=== PATIENT | female | born 1980 | race American Indian/Alaskan Native ===

== ENCOUNTER 2017-01-09 13:06 | Emergency (ER) | payer BC ==
[2017-01-09 13:06] VITALS: BMI 22.8
[2017-01-09 14:52] LABS: BASO # 0.1 K/uL (0.0-0.2); BASO % 0.7 % (0.0-2.0); EOS % 0.3 % (0.0-4.0); HEMATOCRIT 33.1 % (34.0-47.0); LYMPH # 2.4 K/uL (1.0-4.3); LYMPH % 22.4 % (20.0-40.0); MEAN CORPUSCULAR HEMOGLOBIN 24.5 pg (27.0-31.0); MEAN PLATELET VOLUME 8.4 fl (7.2-11.7); MONO # 0.7 K/uL (0.0-0.8); MONO % 6.7 % (0.0-10.0); NEUT # 7.5 K/uL (1.8-7.0); NEUT % 69.9 % (50.0-75.0); RED CELL DISTRIBUTION WIDTH 14.4 % (11.5-14.5); WHITE BLOOD COUNT 10.7 K/uL (4.8-10.8)
--- NOTE | 2017-01-09 15:01 | ED PDOC ---
HPI: Headache Time Seen by Provider: 01/09/17 14:01 Chief Complaint (Nursing): Headache Chief Complaint (Provider): Headache History Per: Patient History/Exam Limitations: no limitations Onset/Duration Of Symptoms: Days (x7) Additional Complaint(s): Balbina Apariico is a 36 year old female, 16 weeks , presenting to the ED for an evaluation of chronic headaches associated with elevated blood pressure occurring for several days. The patient visited [facility], 3 times last week and reports elevated blood pressure and headache during each of these visits. Due to this, her OBGYN referred her to this ED for further evaluation for possible preeclampsia. The patient reports her elevated blood pressure and headache improved significantly today, although she did have a headache this morning. The patient describes this as a frontal headache. She denies vomiting, leg swelling, chest pain, shortness of breath, or any other medical complaints. OBGYN: Jack Rader MD Past Medical History Reviewed: Historical Data, Nursing Documentation, Vital Signs Vital Signs: Last Vital Signs Temp 98.0 F 01/09/17 13:29 Pulse 102 H 01/09/17 13:29 Resp 18 01/09/17 13:29 BP 120/67 01/09/17 13:29 Pulse Ox 99 01/09/17 13:29 - Medical History PMH: Denies: Depression - Surgical History Surgical History: No Surg Hx - Family History Family History: States: Unknown Family Hx - Social History Current smoker - smoking cessation education provided: No Ex-Smoker (has not smoked in the last 12 months): No Alcohol: None Drugs: Denies - Immunization History Hx Tetanus Toxoid Vaccination: No Hx Influenza Vaccination: No Hx Pneumococcal Vaccination: No - Home Medications Home Medications: Ambulatory Orders Medication Instructions Recorded Acetaminophen/Oxycodone Hydr 1 tab PO Q6 #10 tab 01/21/13 [Percocet 325 mg-5 mg] Diazepam [Valium] 5 mg PO Q8 PRN #12 tab 01/21/13 Naproxen [Naprosyn] 500 mg PO Q12 PRN #30 tab 01/21/13 - Allergies Allergies/Adverse Reactions: Allergies Allergy/AdvReac Type Severity Reaction Status Date / Time Penicillins Allergy RASH Verified 01/09/17 13:28 Review of Systems ROS Statement: Except As Marked, All Systems Reviewed And Found Negative Constitutional: Positive for: Other (elevated blood pressure ) Cardiovascular: Negative for: Chest Pain Respiratory: Negative for: Shortness of Breath Gastrointestinal: Negative for: Vomiting Musculoskeletal: Negative for: Leg Pain (no leg swelling) Neurological: Positive for: Headache Physical Exam - Reviewed Nursing Documentation Reviewed: Yes Vital Signs Reviewed: Yes - Physical Exam Appears: Positive for: Well, Non-toxic, No Acute Distress Head Exam: Positive for: ATRAUMATIC, NORMAL INSPECTION, NORMOCEPHALIC Skin: Positive for: Normal Color, Warm, Dry Eye Exam: Positive for: EOMI, Normal appearance, PERRL ENT: Positive for: Normal ENT Inspection Neck: Positive for: Normal, Painless ROM, Supple Cardiovascular/Chest: Positive for: Regular Rate, Rhythm, Chest Non Tender Respiratory: Positive for: Normal Breath Sounds. Negative for: Respiratory Distress Gastrointestinal/Abdominal: Positive for: Normal Exam, Bowel Sounds, Soft, Other (gravid abdomen). Negative for: Tenderness Back: Positive for: Normal Inspection. Negative for: L CVA Tenderness, R CVA Tenderness Extremity: Positive for: Normal ROM. Negative for: Pedal Edema, Deformity, Swelling Neurologic/Psych: Positive for: Alert, Oriented (x3). Negative for: Motor/ Sensory Deficits - Laboratory Results Result Diagrams: 01/09/17 14:45 01/09/17 14:45 - ECG O2 Sat by Pulse Oximetry: 99 (RA) Pulse Ox Interpretation: Normal Medical Decision Making Medical Decision Making: Time: 14:01 Impression: Recurrent headache during 2nd trimester with history of elevated blood pressure Differential diagnosis includes but not limited to preeclampsia, OB complicaitons Plan: * CMP * Uric Acid * CBC (With Differential) * Urinalysis * US Biophysical profile * Reevaluation Consult Dr. Rader [id number] Ultrasound Impression: Single live intrauterine gestation of approximately 16 weeks 1 day gestational age. heart rate 149. No previa. Normal amniotic fluid volume. Cervix closed and long. [id number] Rader who recommends discharge and follow up Scribe Attestation: Documented by Aylin Babin, acting as a scribe for Verónica Richards MD. Provider Scribe Attestation: All medical record entries made by the Scribe were at my direction and personally dictated by me. I have reviewed the chart and agree that the record accurately reflects my personal performance of the history, physical exam, medical decision making, and the department course for this patient. I have also personally directed, reviewed, and agree with the discharge instructions and disposition. Disposition - Clinical Impression Clinical Impression: Headache, Hypertension affecting - Patient ED Disposition Is Patient to be Admitted: No Doctor Will See Patient In The: Office Counseled Patient/Family Regarding: Studies Performed, Diagnosis, Need For Followup - Disposition Referrals: Jack Rader MD [Staff Provider] - Disposition: Routine/Home Disposition Time: 17:33 Condition: GOOD Additional Instructions: Follow up with your PCP in 2-3 days. Instructions: Preeclampsia (ED)
[2017-01-09 15:02] LABS: ALB/GLOB RATIO 1.1 (1.0-2.1); ALKALINE PHOSPHATASE 46 U/L (38-126); ALT/SGPT 98 U/L (9-52); AST/SGOT 38 U/L (14-36); BILIRUBIN,TOTAL 0.4 mg/dl (0.2-1.3); BLOOD UREA NITROGEN 11 mg/dl (7-17); CALCIUM 9.2 mg/dL (8.4-10.2); CARBON DIOXIDE 21 mmol/L (22-30); CHLORIDE 103 mmol/L (98-107); GFR AFRICAN-AMERICAN > 60; GLUCOSE,RANDOM 93 mg/dL (65-105); POTASSIUM 4.3 MMOL/L (3.6-5.0); SODIUM 134 mmol/l (132-148); TOTAL PROTEIN 7.1 G/DL (6.3-8.2); URIC ACID 4.3 mg/Dl (2.2-7.5)
[2017-01-09 15:05] LABS: RBC URINE 2 /hpf (0-3); URINE BACTERIA OCC (<OCC); URINE BILIRUBIN NEGATIVE (NEGATIVE); URINE BLOOD NEGATIVE (NEGATIVE); URINE COLOR YELLOW (YELLOW); URINE GLUCOSE (UA) NEG (Normal); URINE KETONE 20 mg/dL (NEGATIVE); URINE LEUKOCYTE ESTERASE TRACE Leu/uL (Negative); URINE PROTEIN NEGATIVE (NEGATIVE); URINE UROBILINOGEN 0.2-1.0 mg/dL (0.2-1.0)
[2017-01-09 15:12] LABS: WBC URINE 21 /hpf (0-5)
--- NOTE | 2017-01-09 17:19 | US ---
PROCEDURE: Limited obstetrical ultrasound examination HISTORY: preeclampsia COMPARISON: None available TECHNIQUE: Transabdominal FINDINGS: Examination demonstrates a single live intrauterine gestation. Presentation is cephalic. heart rate 149 beats per minute. Normal anterior fundal placenta identified. No evidence of placenta previa. A grossly normal quantity of amniotic fluid is evident. biometry yields an ultrasound age of 16 weeks 1 day. SARITHA by ultrasound is 06/25/2017. The cervix is closed and measures 4.3 cm in length. IMPRESSION: Single live intrauterine gestation of approximately 16 weeks 1 day gestational age. heart rate 149. No previa. Normal amniotic fluid volume. Cervix closed and long.
[2017-01-09 18:04] VITALS: BP 119/78; PULSE 80; RESP 17; TEMP 98; O2SAT 100
== END 2017-01-09 18:20 | disposition home or self-care (01) ==
LOC: H.ER 13:06
DX: R51 Headache (principal); O16.2 Unspecified maternal hypertension, second trimester; O26.892 Other specified pregnancy related conditions, second trimester; Z3A.16 16 weeks gestation of pregnancy; Z88.0 Allergy status to penicillin

== ENCOUNTER 2017-06-16 08:47 | Inpatient (IN) | payer BC ==
[2017-06-16 08:51] VITALS: BMI 32.5
[2017-06-16 10:26] LABS: BASO % 0.3 % (0.0-2.0); EOS # 0.1 K/uL (0.0-0.7); EOS % 0.8 % (0.0-4.0); HEMOGLOBIN 11.2 g/dL (12.0-16.0); LYMPH # 1.9 K/uL (1.0-4.3); LYMPH % 22.4 % (20.0-40.0); MEAN CORPUSCULAR HGB CONC 33.3 g/dL (33.0-37.0); MEAN PLATELET VOLUME 9.6 fl (7.2-11.7); MONO # 0.7 K/uL (0.0-0.8); MONO % 8.4 % (0.0-10.0); NEUT # 5.7 K/uL (1.8-7.0); NEUT % 68.1 % (50.0-75.0); RBC 4.3 Mil/uL (3.80-5.20); RED CELL DISTRIBUTION WIDTH 14.3 % (11.5-14.5); WHITE BLOOD COUNT 8.3 K/uL (4.8-10.8)
[2017-06-16] MEDS ORDERED: Oxytocin 30 UNITS in Sodium Chloride 0.9% 500 ML IV ONE (10:30)
[2017-06-16] MEDS ORDERED: Clindamycin 600mg/50ml NS 600 MG/50 ML BAG IVPB SCH (10:45)
[2017-06-16] MEDS: Lactated Ringer's 1,000 ML IV SCH ×2 (11:15→12:20)
[2017-06-16] MEDS ORDERED: Lactated Ringer's 1,000 ML IV SCH (13:20)
[2017-06-16] MEDS ORDERED: Fentanyl/Bupivacaine HCl 250 ML EPI ONE (13:34)
--- NOTE | 2017-06-16 14:03 | OBADHP ---
Datetime: 06/16/2017 13:57 Pelvic Type - PN: Adequate Extremities - PN: Normal Abdomen - PN: Normal Back - PN: Normal Breast - PN: Normal Lungs - PN: Normal Heart - PN: Normal Thyroid - PN: Normal Neurologic - PN: Normal HEENT - PN: Normal General - PN: Normal Presentation-Admit: Vertex FHR - Baseline A Provider: 130 Membranes, Provider: Intact Contraction Comments Provider: irregular Gestation - Est Wks by US: 38+ Vital Signs Provider: Reviewed; Within Normal Limits IP Chief Complaint: Uterine contractions NICHD Variability Prov Fetus A: Moderate 6-25bpm NICHD Accel Fetus A IP Provider: 10X10 FHR Category Provider Fetus A: Category I NICHD Decel Fetus A IP Provider: None Dilatation, Provider: 2 Effacement, Provider: 50 Station, Provider: -2 Genitourinary Exam: Normal DTRs - PN: Normal EGA AdmitDate IP: 38.3 IP Adm Impression: Term, intrauterine ; No Active Labor; Intact Membranes IP Admit Plan: Admit to unit; Initiate labor induction protocol
[2017-06-16] MEDS ORDERED: Bupivacaine HCl 0.25% PF (10 ml) Inj ONE (14:14)
[2017-06-16] MEDS ORDERED: ePHEDrine 50 mg/ml Inj ONE (14:46)
[2017-06-16] MEDS ORDERED: Oxycodone/Acetaminophen 5/325 mg Tab PO PRN ×4 (18:46→20:03)
--- NOTE | 2017-06-16 19:01 | OBDS ---
DELIVERY PERSONNEL Delivery Doctor: Michael Ortega MD Mixed Livestock Farmer: Ahmet/WGrimmDatN/Sarah Anesthesiologist: Susana Quispe MD MATERNAL INFORMATION Delivery Anesthesia: Epidural Medications in Delivery: Pitocin Estimated Blood Loss (ml): 250 Placenta Cultured: No Maternal Complications: None Provider Comments: delivery of live baby girl 10/10 clear fluid cord with 3vessels loose nuch al cord intact pereniumebl 200ml LABOR SUMMARY EDC: 06/27/2017 00:00 No. Babies in Womb: 1 Attempted: No Labor Anesthesia: Epidural LABOR INFORMATION Reason for Induction: Other Onset of Labor: 06/16/2017 12:30 Complete Dilatation: 06/16/2017 18:00 Oxytocin: Induction Group B Beta Strep: Positive Antibiotics # of Doses: #1 Cleocin 600mg X1 Antibiotics Time of Last Dose: 11:30 Steroids Given: None Reason Steroids Not Administered: Not Applicable Other Reason Not Administered: n/a MEMBRANES Membranes Rupture Method: Spontaneous Rupture of Membranes: 06/16/2017 12:50 Length of Rupture (hrs): 5.55 Amniotic Fluid Color: Clear Amniotic Fluid Amount: Moderate Amniotic Fluid Odor: Normal STAGES OF LABOR Stage 1 hrs: 5 Stage 1 min: 30 Stage 2 hrs: 0 Stage 2 min: 23 Stage 3 hrs: 0 Stage 3 min: 6 Total Time in Labor hrs: 5 Total Time in Labor min: 59 VAGINAL DELIVERY Episiotomy: None Laceration Extension: N/A Laceration Type: None Laceration Repair: Not Applicable Laceration Repair Note: none Initial Vag Sponge Count: laps=5 with rings and 1 without ring Final Vag Sponge Count: laps=5 with rings and 1 without ring Initial Vag Sharps Count: 0 Final Vag Sharps Count: 0 Sharps Count Correct: N/A Count Comment: correct BABY A INFORMATION Delivery Date/Time: 06/16/2017 18:23 Method of Delivery: Vaginal Born in Route : No : N/A Forceps: N/A Vacuum Extraction: N/A Shoulder Dystocia : No SHOULDER DYSTOCIA BABY A Delivery Date/Time: 06/16/2017 18:23 PRESENTATION/POSITION BABY A Presentation: Cephalic Cephalic Presentation: N/A Breech Presentation: N/A PLACENTA INFORMATION BABY A Placenta Delivery Time : 06/16/2017 18:29 Placenta Method of Delivery: Spontaneous Placenta Status: Delivered SCORES BABY A Heart Rate 1 min: >100 bpm Resp Effort 1 min: Good Cry Reflex Irritability 1 min: Cough or Sneeze or Pulls Away Muscle Tone 1 min: Active Motion Color 1 min: Body [place], Extremities Blue Resuscitation Effort 1 min: Tactile Stimulation SCORE 1 MIN: 9 Heart Rate 5 min: >100 bpm Resp Effort 5 min: Good Cry Reflex Irritability 5 min: Cough or Sneeze or Pulls Away Muscle Tone 5 min: Active Motion Color 5 min: Body [place], Extremities Blue Resuscitation Effort 5 min: N/A SCORE 5 MIN: 9 INFORMATION BABY A Gestational Age at Delivery: 38.3 Gestational Status: Term Outcome : Liveborn Infant Condition : Stable Sex: Female IDENTIFICATION/MEDS BABY A ID Band Number: [id number] ID Band Location: Left Leg; Left Arm Vitamin K Given : Not Given Erythromycin Given: Not Given WEIGHT/LENGTH BABY A Infant Birthweight (gms): 3205 Infant Weight (lb): 7 Infant Weight (oz): 1 CORD INFORMATION BABY A No. Cord Vessels: 3 Nuchal Cord : Around Neck x1, Loose Nuchal Cord Other: n/a True Knot: n/a Cord pH Baby Arterial: n/a Cord pH Baby Venous: n/a Banking/Donate Info: n/a Suction: Mouth; Nose ASSESSMENT BABY A Infant Complications: None Physical Findings at Delivery: Within Normal Limits Respirations: Appears Normal Manager Customer/ALS Called : No Care By: Tj Evans/Ahmet?Sarah Transferred To: Remains with Mother
[2017-06-17 07:10] LABS: BASO % 0.4 % (0.0-2.0); EOS # 0.1 K/uL (0.0-0.7); EOS % 0.5 % (0.0-4.0); HEMOGLOBIN 11.9 g/dL (12.0-16.0); LYMPH # 1.8 K/uL (1.0-4.3); LYMPH % 12.8 % (20.0-40.0); MEAN CORPUSCULAR HEMOGLOBIN 25.6 pg (27.0-31.0); MEAN CORPUSCULAR HGB CONC 32.8 g/dL (33.0-37.0); MEAN PLATELET VOLUME 9.5 fl (7.2-11.7); MONO # 1.3 K/uL (0.0-0.8); NEUT # 10.8 K/uL (1.8-7.0); NEUT % 77.3 % (50.0-75.0); NRBC % 0.1 % (0.0-0.0); RBC 4.65 Mil/uL (3.80-5.20); RED CELL DISTRIBUTION WIDTH 14.4 % (11.5-14.5)
--- NOTE | 2017-06-17 08:40 | OBPPN ---
Datetime: 06/17/2017 08:36 PP Pain Prov: Within normal limits PP Nausea Prov: Denies PP Flatus Prov: Yes PP BM Prov: No PP Breasts Prov: Normal PP Heart Prov: Normal PP Lungs Prov: Normal PP Abdomen/Uterus Prov: Normal PP Lochia Prov: Normal PP Vulva/Perineum Prov: Normal PP CVA Tenderness Prov: Normal PP Extremities Prov: Normal PP Progress Prov: Normal PP Impression Prov: Normal progression PP Plan Prov: Continue present management PP Progress Note Prov: stable ppd1 continue present care IP PP Procedures: None
--- NOTE | 2017-06-18 10:41 | OBPPN ---
Datetime: 06/18/2017 10:35 PP Pain Prov: Within normal limits PP Pain Prov comment: No SOB, chest or leg pains PP Nausea Prov: Denies PP Flatus Prov: Yes PP Nausea Prov comment: Denies C/F PP Breasts Prov: Normal PP Lungs Prov: Normal PP Abdomen/Uterus Prov: Abnormal PP Lochia Prov: Normal PP CVA Tenderness Prov: Normal PP Extremities Prov: Normal PP C/S Incision Prov: Not Applicable PP Progress Prov: Not Applicable PP Comments Phys Exam Prov: Breast NE, not breast feeding; Abd soft ND, fundus firm below the umb. NT Ext no calf tenderness PP Impression Prov: Normal progression PP Plan Prov: Discharge PP Progress Note Prov: D/C home with instructions and follow up officr in 4-6 wks IP PP Procedures: None Vital Signs Provider PP: Reviewed
--- NOTE | 2017-06-18 10:43 | OBDCSUM ---
Datetime: 06/18/2017 10:40 Discharged to, Provider: Home Follow up at, Provider: Dr Ortega Disch Instr Activity: Bedrest; May be up to bathroom; May be up for meals; May Shower Disch Instr Diet: Regular Discharge Instructions, Provider: Routine instructions given Discharge Diagnosis, Provider: Term Delivered Discharge Time: 06/18/2017 10:40 Follow up in weeks, Provider: 4-6 wks Disch Referrals: None Contraception discussed, Prov: Yes Disch Activity Restrictions: No exercising; No lifting; No driving; Minimize walking; Minimize stair -climbing; No sexual activity; Nothing in vagina - [place], tampons, douche Discharge Comment, Provider: Continue PNC vit and iron Pelvic and bed rest instructions given Contraception after Delivery: Undecided
[2017-06-18 20:22] VITALS: BP 116/65; PULSE 78; RESP 20; TEMP 98; O2SAT 100
== END 2017-06-18 13:35 | disposition home or self-care (01) | DRG 775 ==
LOC: H.L&D 09:39 → H.OB/GYN 22:17
PROVIDERS: ADMIT Specialist; ATTEND Specialist
PROC: 10E0XZZ Delivery of Products of Conception, External Approach (ICD-10-PCS; principal; 2017-06-16)
PROC: 4A1HXCZ Monitoring of Products of Conception, Cardiac Rate, External Approach (ICD-10-PCS; 2017-06-16)
DX: O69.81X0 Labor and delivery complicated by cord around neck, without compression, not applicable or unspecified (principal); O99.824 Streptococcus B carrier state complicating childbirth; Z37.0 Single live birth; Z3A.38 38 weeks gestation of pregnancy

== ENCOUNTER 2017-06-23 13:14 | Inpatient (IN) | payer BC ==
[2017-06-23 13:14] VITALS: BMI 32.5
[2017-06-23] MEDS ORDERED: Labetalol 5mg/ml (4ml) ONE ×4 (14:08→17:40)
[2017-06-23] MEDS ORDERED: Etomidate 20 mg/10ml Inj IV ONE (14:22)
[2017-06-23] MEDS ORDERED: Succinylcholine 200 mg/10 ml Inj IV ONE (14:23)
[2017-06-23] MEDS ORDERED: Magnesium Sulfate 2 GM in Sodium Chloride 0.9% 100 ML IVPB ONE (14:34)
[2017-06-23] MEDS ORDERED: Labetalol 300 MG in Dextrose 5% In Water 240 ML IV ONE (14:34)
[2017-06-23] MEDS ORDERED: Magnesium Sulfate 2 gm/50 ml 2 GM/50 ML BAG ONE ×2 (14:36→18:01)
[2017-06-23] MEDS ORDERED: Labetalol 5mg/ml (4ml) IVP STA ×3 (14:36→15:11)
--- NOTE | 2017-06-23 14:39 | CT ---
PROCEDURE: CT HEAD WITHOUT CONTRAST. HISTORY: status epilepticus COMPARISON: None available. TECHNIQUE: Axial computed tomography images were obtained through the head/brain without intravenous contrast. Radiation dose: Total exam DLP = 782.8 mGy-cm. This CT exam was performed using one or more of the following dose reduction techniques: Automated exposure control, adjustment of the mA and/or kV according to patient size, and/or use of iterative reconstruction technique. FINDINGS: HEMORRHAGE: No intracranial hemorrhage. BRAIN: No mass effect or edema. No atrophy or chronic microvascular ischemic changes. VENTRICLES: Unremarkable. No hydrocephalus. CALVARIUM: Unremarkable. PARANASAL SINUSES: Unremarkable as visualized. No significant inflammatory changes. MASTOID AIR CELLS: Unremarkable as visualized. No inflammatory changes. OTHER FINDINGS: None. IMPRESSION: No acute intracranial pathology.
--- NOTE | 2017-06-23 14:44 | ED PDOC ---
HPI: Seizure Time Seen by Provider: 06/23/17 14:03 Chief Complaint (Nursing): Seizure Chief Complaint (Provider): Seizure Additional Complaint(s): Pt brought in from waiting actively seizing. Neighbor states pt was c/o BUCIO this morning, pt is 7 days postpartem. Pt here with neighbor who does not know history of patient. Past Medical History Reviewed: Nursing Documentation, Vital Signs Vital Signs: Last Vital Signs Temp 98 F 06/23/17 17:23 Pulse 79 06/23/17 17:23 Resp 18 06/23/17 17:23 BP 165/100 H 06/23/17 17:23 Pulse Ox 100 06/23/17 17:23 - Medical History PMH: No Chronic Diseases Denies: Depression, Diabetes, HTN - Family History Family History: States: Unknown Family Hx - Immunization History Hx Tetanus Toxoid Vaccination: No Hx Influenza Vaccination: No Hx Pneumococcal Vaccination: No - Home Medications Home Medications: Ambulatory Orders Medication Instructions Recorded No Known Home Med 06/23/17 - Allergies Allergies/Adverse Reactions: Allergies Allergy/AdvReac Type Severity Reaction Status Date / Time Penicillins Allergy RASH Verified 01/09/17 13:28 Review of Systems Review Of Systems: ROS cannot be obtained secondary to pt's inabilty to answer questions. Physical Exam - Reviewed Nursing Documentation Reviewed: Yes Vital Signs Reviewed: Yes - Physical Exam Appears: Positive for: In Acute Distress (Actively seizing) Head Exam: Positive for: ATRAUMATIC, NORMAL INSPECTION Skin: Positive for: Normal Color, Warm, Dry Eye Exam: Positive for: Other (Bilateral deviation to left) Cardiovascular/Chest: Positive for: Tachycardia. 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 Negative for: Alert, Oriented - Laboratory Results Result Diagrams: 06/23/17 14:40 06/23/17 14:40 - ECG Interpretation Of ECG: ST @ 149. O2 Sat by Pulse Oximetry: 95 Pulse Ox Interpretation: Normal - Radiology X-Ray: Interpreted by Az X-Ray Interpretation: No Acute Disease (Poor inspiration) - Physician Consult Information Physician Contacted: Dilan Alston Outcome Of Conversation: Admit to ICU. - Critical Care Total Time (In Min): 90 Medical Decision Making Medical Decision Makin yo female with new onset seizure, postpartem. - labs - EKG - CT head - Ativan - MgSO4 Pt actively seizing in presentation, Ativan 4 mg IVP administered with resolution of seizures, MgSO4 bolus administered and Labetalol 20 mg IV given. Accession No. : [id number] Patient Name / ID : CODY POWELL / [id number] Exam Date : 06/23/2017 14:24:55 ( Approved ) Study Comment : Sex / Age : F / 36Y Creator : Mick Sutton MD Dictator : Mick Sutton MD Rehabilitation Engineer : Accountant Cost : Mick Sutton MD Approver2 : Report Date : 06/23/2017 14:38:03 My Comment : PROCEDURE: CT HEAD WITHOUT CONTRAST. HISTORY: status epilepticus COMPARISON: None available. TECHNIQUE: Axial computed tomography images were obtained through the head/brain without intravenous contrast. Radiation dose: Total exam DLP = 782.8 mGy-cm. This CT exam was performed using one or more of the following dose reduction techniques: Automated exposure control, adjustment of the mA and/or kV according to patient size, and/or use of iterative reconstruction technique. FINDINGS: HEMORRHAGE: No intracranial hemorrhage. BRAIN: No mass effect or edema. No atrophy or chronic microvascular ischemic changes. VENTRICLES: Unremarkable. No hydrocephalus. CALVARIUM: Unremarkable. PARANASAL SINUSES: Unremarkable as visualized. No significant inflammatory changes. MASTOID AIR CELLS: Unremarkable as visualized. No inflammatory changes. OTHER FINDINGS: None. IMPRESSION: No acute intracranial pathology. Labetalol drip and MgSO4 drip initiated, additional Labetalol boluses administered, will titrate Labetolol to keep BP 140-160/90-110. 16:00 Family members at bedside, states she developed elevated BP at end of and was therefore induced @ 38 2/7 weeks. Denies h/o HTN or seizures. BUCIO started this morning. Pt tired but arousable to verbal stimuli, states BUCIO 8/10 , Diluadid ordered. 17:00 Pt remaines AAOX3. Disposition - Clinical Impression Clinical Impression: Eclampsia - Patient ED Disposition Is Patient to be Admitted: Yes - Disposition Disposition Time: 16:20 Condition: GUARDED - Pt Status Changed To: Hospital Disposition Of: Inpatient - Admit Certification Admit to Inpatient:: After my assessment, the patient will require hospitalization for at least two midnights. This is because of the severity of symptoms shown, intensity of services needed, and/or the medical risk in this patient being treated as an outpatient. - POA Present On Arrival: None
[2017-06-23] MEDS ORDERED: Magnesium Sulfate 2 gm/50 ml 2 GM/50 ML BAG IVPB ONE (14:45)
[2017-06-23 14:56] LABS: BASO # 0.1 K/uL (0.0-0.2); BASO % 0.5 % (0.0-2.0); EOS # 0.2 K/uL (0.0-0.7); EOS % 1.3 % (0.0-4.0); HEMOGLOBIN 13.5 g/dL (12.0-16.0); LYMPH # 5.2 K/uL (1.0-4.3); LYMPH % 42.8 % (20.0-40.0); MEAN CELL VOLUME 81.5 fl (81.0-99.0); MEAN CORPUSCULAR HEMOGLOBIN 25.5 pg (27.0-31.0); MEAN CORPUSCULAR HGB CONC 31.2 g/dL (33.0-37.0); MEAN PLATELET VOLUME 9.9 fl (7.2-11.7); MONO % 8.5 % (0.0-10.0); NEUT # 5.7 K/uL (1.8-7.0); NEUT % 46.9 % (50.0-75.0); RBC 5.29 Mil/uL (3.80-5.20); RED CELL DISTRIBUTION WIDTH 14.6 % (11.5-14.5); WHITE BLOOD COUNT 12.1 K/uL (4.8-10.8)
[2017-06-23] MEDS ORDERED: Labetalol 5mg/ml (4ml) IV ONE ×2 (15:15→17:30)
[2017-06-23 15:16] LABS: PARTIAL THROMBOPLASTIN TIME 26.5 Seconds (25.6-37.1); PROTHROMBIN TIME 10.6 Seconds (9.8-13.1)
[2017-06-23 15:57] LABS: ALB/GLOB RATIO 1.1 (1.0-2.1); ALBUMIN 4.1 g/dL (3.5-5.0); ALT/SGPT 70 U/L (9-52); AST/SGOT 37 U/L (14-36); BLOOD UREA NITROGEN 13 mg/dl (7-17); CALCIUM 9.8 mg/dL (8.4-10.2); GFR AFRICAN-AMERICAN > 60; GFR NON-AFRICAN AMERICAN 51; MAGNESIUM 1.8 MG/DL (1.6-2.3)
[2017-06-23] MEDS ORDERED: Magnesium Sulfate 4 gm/100 ml 4 GM/100 ML BAG IVPB STA (16:08)
[2017-06-23] MEDS ORDERED: Magnesium Sul 40GM/1L SW 40 GM/1,000 ML ML IV ONE (16:12)
[2017-06-23] MEDS ORDERED: Magnesium Sulfate 2 gm/50 ml 2 GM/50 ML BAG IV ONE (18:00)
--- NOTE | 2017-06-23 18:25 | RAD ---
HISTORY: Seizure, eclampsia COMPARISON: GoNo prior. FINDINGS: LUNGS: No active pulmonary disease. PLEURA: No significant pleural effusion identified, no pneumothorax apparent. CARDIOVASCULAR: Normal. OSSEOUS STRUCTURES: No significant abnormalities. VISUALIZED UPPER ABDOMEN: Normal. OTHER FINDINGS: None. IMPRESSION: No active disease.
--- NOTE | 2017-06-23 18:49 | CP.PCM.CON ---
History of Present Illness - History of Present Illness History of Present Illness: 36 yr old woman , one week, with healthy baby boy, who had a total of 3 seizures today, one in the Er waiting room, with eclampsia. Patient did have hypertension while , and had to be induced at 38 weeks, with eclampsia. Her prior pregnancies were event free with normal delivery. Today, the patient felt "wierd", and then had a gtc, came to ER, had second seizure, was started on ativan and magnesium drip. She is quite fluent, awake, with amnesia for the event. There is no history of epilepsy, PMH/PSH: none, FH/SH: Has 4 children over 10. 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 No tobacco , no etoh. No family history of epilepsy. ALl: penicillin. On exam: AAOX3. Pupils 3mm-2mm with light. EOMI. Cn 2-12 normal. Has some nystagmus that resolves. SHe is very hyperreflexic with 3+ reflexes and bilateral clonus There is also pitting edema noted. Motor: 5/5 ul and ll bl. Sensory: no deficits. Gait not tested. Past Patient History - Tetanus Immunizations Tetanus Immunization: Unknown - Past Social History Smoking Status: Never Smoked - CARDIAC Hx Hypertension: No - PSYCHIATRIC Hx Depression: No - SURGICAL HISTORY Hx Surgeries: No Other/Comment: pt is g8,p4, ab 4. - ANESTHESIA Hx Anesthesia: No Meds Allergies/Adverse Reactions: Allergies Allergy/AdvReac Type Severity Reaction Status Date / Time Penicillins Allergy RASH Verified 01/09/17 13:28 - Medications Medications: Current Medications Hydralazine HCl (Apresoline) 5 mg IV Q4H PRN PRN Reason: BLOOD PRESSURE >160/100 Labetalol HCl 300 mg/ Dextrose 300 mls @ 60 mls/hr IV .Q5H ONE; 1 MG/MIN PRN Reason: Protocol Stop: 06/23/17 19:33 Last Admin: 06/23/17 15:52 Dose: 60 mls/hr Magnesium Sulfate (Magnesium Sul 40gm/1l Sw) 40 gm in 1,000 mls @ 50 mls/hr IV .Q20H ONE PRN Reason: 2 GM/HR Stop: 06/24/17 12:11 Last Admin: 06/23/17 16:36 Dose: 50 mls/hr Magnesium Sulfate (Magnesium Sulfate 2 Gm/50 Ml Water) 2 gm in 50 mls @ 50 mls/ hr IV ONCE ONE Stop: 06/23/17 18:59 Last Admin: 06/23/17 18:12 Dose: 50 mls/hr Results - Vital Signs Recent Vital Signs: Last Vital Signs Temp 98 F 06/23/17 17:44 Pulse 80 06/23/17 18:15 Resp 18 06/23/17 18:15 BP 167/99 H 06/23/17 18:15 Pulse Ox 100 06/23/17 18:15 - Labs Result Diagrams: 06/23/17 14:40 06/23/17 14:40 Labs: Laboratory Results - last 24 hr 06/23/17 06/23/17 06/23/17 14:06 14:40 14:40 WBC 12.1 H RBC 5.29 H Hgb 13.5 Hct 43.1 MCV 81.5 D MCH 25.5 L MCHC 31.2 L RDW 14.6 H Plt Count 229 MPV 9.9 Neut % (Auto) 46.9 L Lymph % (Auto) 42.8 H Maries % (Auto) 8.5 Eos % (Auto) 1.3 Baso % (Auto) 0.5 Neut # (Auto) 5.7 Lymph # (Auto) 5.2 H Maries # (Auto) 1.0 H Eos # (Auto) 0.2 Baso # (Auto) 0.1 PT INR APTT Sodium 146 Potassium 3.6 Chloride 106 Carbon Dioxide 10 L* D Anion Gap 34 H BUN 13 Creatinine 1.2 Est GFR ( Amer) > 60 Est GFR (Non-Af Amer) 51 POC Glucose (mg/dL) 88 Random Glucose 109 H Calcium 9.8 Phosphorus 5.2 H Magnesium 1.8 Total Bilirubin 0.5 AST 37 H ALT 70 H D Alkaline Phosphatase 114 Total Protein 7.9 Albumin 4.1 Globulin 3.8 Albumin/Globulin Ratio 1.1 06/23/17 14:40 WBC RBC Hgb Hct MCV MCH MCHC RDW Plt Count MPV Neut % (Auto) Lymph % (Auto) Maries % (Auto) Eos % (Auto) Baso % (Auto) Neut # (Auto) Lymph # (Auto) Maries # (Auto) Eos # (Auto) Baso # (Auto) PT 10.6 INR 1.0 APTT 26.5 Sodium Potassium Chloride Carbon Dioxide Anion Gap BUN Creatinine Est GFR ( Amer) Est GFR (Non-Af Amer) POC Glucose (mg/dL) Random Glucose Calcium Phosphorus Magnesium Total Bilirubin AST ALT Alkaline Phosphatase Total Protein Albumin Globulin Albumin/Globulin Ratio - Imaging and Cardiology CT scan - head Status: Image reviewed by me, Report reviewed by me (Normal ct head. ) Assessment & Plan - Assessment and Plan (Free Text) Assessment: 36 yr old woman with seizures secondary to eclampsia. The patient has severe proteinuria, and a history of PIH, but she has a neurological examination. Plan: 1. Mag sulfate to control eclampsia 2. no antiepileptic medications at this time. 3. MRI Brain to evaluate for PRESS syndrome. THank you we will follow.
[2017-06-23 19:10] LABS: URINE CLARITY Clear (Clear); URINE COLOR LIGHT YELLOW (YELLOW)
[2017-06-23 19:11] LABS: SQUAMOUS EPITHIAL 1 /hpf (0-5); URINE BACTERIA FEW (<OCC); URINE BILIRUBIN NEGATIVE (NEGATIVE); URINE BLOOD TRACE (NEGATIVE); URINE GLUCOSE (UA) NEGATIVE (Normal); URINE LEUKOCYTE ESTERASE NEGATIVE Leu/uL (Negative); URINE NITRATE NEGATIVE (NEGATIVE); URINE PROTEIN 30 mg/dL (NEGATIVE); URINE UROBILINOGEN 0.2 mg/dL (0.2-1.0)
--- NOTE | 2017-06-23 19:42 | CP.CCUPN ---
CCU Subjective - Physician Review Subjective (Free Text): 36F who is post- 7 days ago presented with Seizures and uncontrolled hypertension today. No further history obtainable from sedated patient now after receiving total of 4 mg IV Ativan to abort 2nd episode of seizures ( generalized tonic clonic lasting 2-3 minutes). Highest BP recorded in ER was 165/100, HR 85, given total of 40 mg IV Labetalol. Started on IV Mag drip. Other vitals and I/O's reviewed. ROS: No other pertinent negs or positives on 10+ system review obtainable due to sedation. Allergies: penicillin Home Meds: unknown PMSFH: All other Nursing and physician documentation reviewed to date; no new pertinent info noted relevant to current medical problems. EKG: SINUS Tachy 149/min, inferolateral wall ST-T changes. No old study for comparison. CXR: left hemidiaphragm obscured, possible infiltrate behind left heart, and RLL haziness. ( my interp.) CT Head: report reviewed- negative acute findings. IMPRESSION / MAJOR PROBLEMS NOW: 1. Eclampsia with multiple seizure episodes and accelerated HTN 2. AG Metabolic Acidosis 2 seizures 3. r/o Aspiration Pneumonia PLAN: 1. ICU observation, Neurochecks, seizure precautions, HOB elevation, SCDs, IVF hydration 2. Magnesium drip 3. Maternal Medicine- OB, Neurology evaluation 4. Repeat brain imaging. 5. Serial Lactate monitoring, check CPK, monitor serial BUN/Cr. 6. Supplemental oxygen, check repeat CXR, or consider CT Chest to further clarify any occult infiltrates. But no need at this time for assisted breathing support. Consider empiric abx coverage ( pen allergic, Vanco/ Levaquin ) CCU Objective - Vital Signs / Intake & Output Vital Signs (Last 4 hours): Vital Signs Temp Pulse Resp BP Pulse Ox 06/23/17 18:15 80 18 167/99 H 100 06/23/17 17:49 95 06/23/17 17:44 98 F 85 18 153/89 H 100 06/23/17 17:23 98 F 79 18 165/100 H 100 06/23/17 15:52 85 168/93 H Intake and Output (Last 8hrs): Intake & Output 06/23/17 06/23/17 06/23/17 06:59 14:59 22:59 Weight 170 lb - Physical Exam Physical Exam Limitations: Positive for: Altered Mental Status Head: Positive for: Normocephalic Pupils: Positive for: PERRL Extroacular Muscles: Positive for: EOMI. Negative for: Gaze Palsy Conjunctiva: Positive for: Normal. Negative for: Icteric Mouth: Positive for: Moist Mucous Membranes Neck: Positive for: Normal Range of Motion. Negative for: JVD Respiratory/Chest: Positive for: Clear to Auscultation Cardiovascular: Positive for: Regular Rate and Rhythm. Negative for: Murmurs, Rub Abdomen: Positive for: Normal Bowel Sounds. Negative for: Tenderness, Distention, Mass/Organomegaly Lower Extremity: Positive for: Edema, NORMAL PULSES. Negative for: CALF TENDERNESS, Cyanosis Neurological: Positive for: Motor Func Grossly Intact, Normal Sensory Function Skin: Positive for: Warm, Dry. Negative for: Rashes - Medications Active Medications: Active Medications Generic Name Dose Route Start Last Admin Trade Name Freq PRN Reason Stop Dose Admin Hydralazine HCl 5 mg 06/23/17 18:20 Apresoline IV Q4H PRN BLOOD PRESSURE >160/100 Magnesium Sulfate 40 gm in 1,000 mls @ 50 mls/hr 06/23/17 16:12 06/23/17 16: 36 Magnesium Sul 40gm/1l Sw IV 06/24/17 12:11 50 mls/hr .Q20H ONE Administration 2 GM/HR - Patient Studies Lab Studies: Lab Studies 06/23/17 06/23/17 06/23/17 Range/Units 17:32 14:40 14:40 WBC (4.8-10.8) K/uL RBC (3.80-5.20) Mil/uL Hgb (12.0-16.0) g/dL Hct (34.0-47.0) % MCV (81.0-99.0) fl MCH (27.0-31.0) pg MCHC (33.0-37.0) g/dL RDW (11.5-14.5) % Plt Count (130-400) K/uL MPV (7.2-11.7) fl Neut % (Auto) (50.0-75.0) % Lymph % (Auto) (20.0-40.0) % [place] % (Auto) (0.0-10.0) % Eos % (Auto) (0.0-4.0) % Baso % (Auto) (0.0-2.0) % Neut # (Auto) (1.8-7.0) K/uL Lymph # (Auto) (1.0-4.3) K/uL [place] # (Auto) (0.0-0.8) K/uL Eos # (Auto) (0.0-0.7) K/uL Baso # (Auto) (0.0-0.2) K/uL PT 10.6 (9.8-13.1) Seconds INR 1.0 (0.9-1.2) APTT 26.5 (25.6-37.1) Seconds Sodium 146 (132-148) mmol/l Potassium 3.6 (3.6-5.0) MMOL/L Chloride 106 (98-107) mmol/L Carbon Dioxide 10 L* D (22-30) mmol/L Anion Gap 34 H (10-20) BUN 13 (7-17) mg/dl Creatinine 1.2 (0.7-1.2) mg/dl Est GFR ( Amer) > 60 Est GFR (Non-Af Amer) 51 POC Glucose (mg/dL) (65-110) mg/dL Random Glucose 109 H (65-105) mg/dL Calcium 9.8 (8.4-10.2) mg/dL Phosphorus 5.2 H (2.5-4.5) mg/dl Magnesium 1.8 (1.6-2.3) MG/DL Total Bilirubin 0.5 (0.2-1.3) mg/dl AST 37 H (14-36) U/L ALT 70 H D (9-52) U/L Alkaline Phosphatase 114 (38-126) U/L Total Protein 7.9 (6.3-8.2) G/DL Albumin 4.1 (3.5-5.0) g/dL Globulin 3.8 (2.2-3.9) gm/dL Albumin/Globulin Ratio 1.1 (1.0-2.1) Urine Color Light yellow (YELLOW) Urine Clarity Clear (Clear) Urine pH 6.0 (5.0-8.0) Ur Specific [place] 1.010 (1.003-1.030) Urine Protein 30 (NEGATIVE) mg/dL Urine Glucose (UA) Negative (Normal) mg/dL Urine Ketones Ngative (NEGATIVE) mg/dL Urine Blood Trace (NEGATIVE) Urine Nitrate Negative (NEGATIVE) Urine Bilirubin Negative (NEGATIVE) Urine Urobilinogen 0.2 (0.2-1.0) mg/dL Ur Leukocyte Esterase Negative (Negative) [place]/uL Urine RBC (Auto) 8 H (0-3) /hpf Urine Microscopic WBC < 1 (0-5) /hpf Ur Squamous Epith Cells 1 (0-5) /hpf Urine Bacteria Few H (<OCC) 06/23/17 06/23/17 Range/Units 14:40 14:06 WBC 12.1 H (4.8-10.8) K/uL RBC 5.29 H (3.80-5.20) Mil/uL Hgb 13.5 (12.0-16.0) g/dL Hct 43.1 (34.0-47.0) % MCV 81.5 D (81.0-99.0) fl MCH 25.5 L (27.0-31.0) pg MCHC 31.2 L (33.0-37.0) g/dL RDW 14.6 H (11.5-14.5) % Plt Count 229 (130-400) K/uL MPV 9.9 (7.2-11.7) fl Neut % (Auto) 46.9 L (50.0-75.0) % Lymph % (Auto) 42.8 H (20.0-40.0) % [place] % (Auto) 8.5 (0.0-10.0) % Eos % (Auto) 1.3 (0.0-4.0) % Baso % (Auto) 0.5 (0.0-2.0) % Neut # (Auto) 5.7 (1.8-7.0) K/uL Lymph # (Auto) 5.2 H (1.0-4.3) K/uL [place] # (Auto) 1.0 H (0.0-0.8) K/uL Eos # (Auto) 0.2 (0.0-0.7) K/uL Baso # (Auto) 0.1 (0.0-0.2) K/uL PT (9.8-13.1) Seconds INR (0.9-1.2) APTT (25.6-37.1) Seconds Sodium (132-148) mmol/l Potassium (3.6-5.0) MMOL/L Chloride (98-107) mmol/L Carbon Dioxide (22-30) mmol/L Anion Gap (10-20) BUN (7-17) mg/dl Creatinine (0.7-1.2) mg/dl Est GFR ( Amer) Est GFR (Non-Af Amer) POC Glucose (mg/dL) 88 (65-110) mg/dL Random Glucose (65-105) mg/dL Calcium (8.4-10.2) mg/dL Phosphorus (2.5-4.5) mg/dl Magnesium (1.6-2.3) MG/DL Total Bilirubin (0.2-1.3) mg/dl AST (14-36) U/L ALT (9-52) U/L Alkaline Phosphatase (38-126) U/L Total Protein (6.3-8.2) G/DL Albumin (3.5-5.0) g/dL Globulin (2.2-3.9) gm/dL Albumin/Globulin Ratio (1.0-2.1) Urine Color (YELLOW) Urine Clarity (Clear) Urine pH (5.0-8.0) Ur Specific [place] (1.003-1.030) Urine Protein (NEGATIVE) mg/dL Urine Glucose (UA) (Normal) mg/dL Urine Ketones (NEGATIVE) mg/dL Urine Blood (NEGATIVE) Urine Nitrate (NEGATIVE) Urine Bilirubin (NEGATIVE) Urine Urobilinogen (0.2-1.0) mg/dL Ur Leukocyte Esterase (Negative) [place]/uL Urine RBC (Auto) (0-3) /hpf Urine Microscopic WBC (0-5) /hpf Ur Squamous Epith Cells (0-5) /hpf Urine Bacteria (<OCC) Laboratory Results - last 24 hr 06/23/17 06/23/17 06/23/17 14:06 14:40 14:40 WBC 12.1 H RBC 5.29 H Hgb 13.5 Hct 43.1 MCV 81.5 D MCH 25.5 L MCHC 31.2 L RDW 14.6 H Plt Count 229 MPV 9.9 Neut % (Auto) 46.9 L Lymph % (Auto) 42.8 H [place] % (Auto) 8.5 Eos % (Auto) 1.3 Baso % (Auto) 0.5 Neut # (Auto) 5.7 Lymph # (Auto) 5.2 H [place] # (Auto) 1.0 H Eos # (Auto) 0.2 Baso # (Auto) 0.1 PT INR APTT Sodium 146 Potassium 3.6 Chloride 106 Carbon Dioxide 10 L* D Anion Gap 34 H BUN 13 Creatinine 1.2 Est GFR ( Amer) > 60 Est GFR (Non-Af Amer) 51 POC Glucose (mg/dL) 88 Random Glucose 109 H Calcium 9.8 Phosphorus 5.2 H Magnesium 1.8 Total Bilirubin 0.5 AST 37 H ALT 70 H D Alkaline Phosphatase 114 Total Protein 7.9 Albumin 4.1 Globulin 3.8 Albumin/Globulin Ratio 1.1 Urine Color Urine Clarity Urine pH Ur Specific [place] Urine Protein Urine Glucose (UA) Urine Ketones Urine Blood Urine Nitrate Urine Bilirubin Urine Urobilinogen Ur Leukocyte Esterase Urine RBC (Auto) Urine Microscopic WBC Ur Squamous Epith Cells Urine Bacteria 06/23/17 06/23/17 14:40 17:32 WBC RBC Hgb Hct MCV MCH MCHC RDW Plt Count MPV Neut % (Auto) Lymph % (Auto) [place] % (Auto) Eos % (Auto) Baso % (Auto) Neut # (Auto) Lymph # (Auto) [place] # (Auto) Eos # (Auto) Baso # (Auto) PT 10.6 INR 1.0 APTT 26.5 Sodium Potassium Chloride Carbon Dioxide Anion Gap BUN Creatinine Est GFR ( Amer) Est GFR (Non-Af Amer) POC Glucose (mg/dL) Random Glucose Calcium Phosphorus Magnesium Total Bilirubin AST ALT Alkaline Phosphatase Total Protein Albumin Globulin Albumin/Globulin Ratio Urine Color Light yellow Urine Clarity Clear Urine pH 6.0 Ur Specific [place] 1.010 Urine Protein 30 Urine Glucose (UA) Negative Urine Ketones Ngative Urine Blood Trace Urine Nitrate Negative Urine Bilirubin Negative Urine Urobilinogen 0.2 Ur Leukocyte Esterase Negative Urine RBC (Auto) 8 H Urine Microscopic WBC < 1 Ur Squamous Epith Cells 1 Urine Bacteria Few H Radiology Interpretations (Free Text): see above EKG/Cardiology Studies: see above Fingerstick Blood Sugar Results: 88 Review of Systems - Review of Systems Systems not reviewed;Unavailable: Altered Mental Status
[2017-06-23] MEDS ORDERED: Sodium Bicarbonate 8.4% 80 MEQ in Dextrose 5% In Water 1,000 ML IV SCH (19:45)
[2017-06-23] MEDS ORDERED: Acetaminophen 325 MG/10.15 ML ONE (22:30)
[2017-06-23] MEDS: Acetaminophen 325 MG/10.15 ML PO PRN (22:31)
[2017-06-24 06:42] LABS: BASO % 0.5 % (0.0-2.0); EOS # 0.1 K/uL (0.0-0.7); EOS % 0.7 % (0.0-4.0); HEMOGLOBIN 12.7 g/dL (12.0-16.0); LYMPH # 1.4 K/uL (1.0-4.3); LYMPH % 19.4 % (20.0-40.0); MEAN CELL VOLUME 78.7 fl (81.0-99.0); MEAN CORPUSCULAR HEMOGLOBIN 25.3 pg (27.0-31.0); MEAN CORPUSCULAR HGB CONC 32.2 g/dL (33.0-37.0); MEAN PLATELET VOLUME 9.5 fl (7.2-11.7); MONO # 0.5 K/uL (0.0-0.8); MONO % 6.7 % (0.0-10.0); NEUT # 5.4 K/uL (1.8-7.0); NEUT % 72.7 % (50.0-75.0); RBC 5.02 Mil/uL (3.80-5.20); RED CELL DISTRIBUTION WIDTH 14.1 % (11.5-14.5); WHITE BLOOD COUNT 7.4 K/uL (4.8-10.8)
[2017-06-24 06:54] LABS: ALB/GLOB RATIO 0.9 (1.0-2.1); ALBUMIN 3.2 g/dL (3.5-5.0); ALT/SGPT 60 U/L (9-52); AST/SGOT 32 U/L (14-36); BLOOD UREA NITROGEN 9 mg/dl (7-17); CALCIUM 7.3 mg/dL (8.4-10.2); GFR AFRICAN-AMERICAN > 60; GFR NON-AFRICAN AMERICAN > 60
[2017-06-24] MEDS: levoFLOXacin 500 mg in D5W 500 MG/100 ML BAG IVPB SCH (08:56)
--- NOTE | 2017-06-24 10:26 | CARD ---
APPROVED REPORT EKG Measurement Heart [id number] <Conclusion> Sinus tachycardia Possible Left atrial enlargement Left ventricular hypertrophy with repolarization abnormality Abnormal ECG
--- NOTE | 2017-06-24 16:03 | MRI ---
PROCEDURE: MRI of the brain dated 06/23/2017 HISTORY: The clamp cm. COMPARISON: Comparison made with CT scan brain obtained earlier same day TECHNIQUE: Multiplanar, multisequence MR images of the brain were obtained without intravenous contrast enhancement. FINDINGS: HEMORRHAGE: No acute parenchymal, subarachnoid or extra-axial hemorrhage. No evidence of hemosiderin deposition is identified on gradient echo weighted sequence. DWI: What are felt to represent areas of shine through artifact on diffusion imaging in areas of prolonged T2 signal located in the deep as well as subcortical white matter and cortex cortices of the frontal parietal and occipital parietal watershed zones consistent with PRES described below. BRAIN PARENCHYMA: There are patchy areas of prolonged T2 signal within the deep and subcortical as well as subcortical of regions of both posterior frontoparietal and occipitoparietal watershed zones consistent with PRES given the patient's history of eclampsia. Differential diagnosis would also include post infectious/inflammatory, demyelinating disease process. The venous sinuses demonstrate no occlusion to suggest on venous infarctions. VENTRICLES: No obstructive hydrocephalus. CRANIUM: No calvarial abnormalities are identified ORBITS: Orbits and contents unremarkable. PARANASAL SINUSES/MASTOIDS: The frontal sinuses are hypoplastic. Remaining visualized paranasal sinuses well-developed and appear clear. Mastoid air complexes appear clear as well. VASCULAR SYSTEM: Visualized major vascular flow voids at skull base patent. OTHER FINDINGS: None. IMPRESSION: Findings consistent with PRES involving the posterior frontoparietal and occipitoparietal watershed zones. See above discussion for additional details and findings.
[2017-06-24] MEDS ORDERED: Potassium Chloride 20 mEq/15 ml LIQ UD PO ONE (16:05)
--- NOTE | 2017-06-24 16:08 | CP.PCM.CON ---
Past Patient History - Tetanus Immunizations Tetanus Immunization: Unknown - Past Social History Smoking Status: Never Smoked - CARDIAC Hx Hypertension: No - PSYCHIATRIC Hx Depression: No - SURGICAL HISTORY Hx Surgeries: No Other/Comment: pt is g8,p4, ab 4. - ANESTHESIA Hx Anesthesia: No Meds Allergies/Adverse Reactions: Allergies Allergy/AdvReac Type Severity Reaction Status Date / Time Penicillins Allergy RASH Verified 01/09/17 13:28 - Medications Medications: Current Medications Acetaminophen (Tylenol 325mg/10.15ml Ud) 325 mg PO Q4 PRN PRN Reason: Headache Last Admin: 06/23/17 22:31 Dose: 325 mg Hydralazine HCl (Apresoline) 5 mg IV Q4H PRN PRN Reason: BLOOD PRESSURE >160/100 Last Admin: 06/23/17 22:19 Dose: 5 mg Sodium Bicarbonate 80 meq/ (Dextrose) 1,080 mls @ 125 mls/hr IV .[id number] EMILEE Stop: 06/24/17 19:33 Last Admin: 06/23/17 21:29 Dose: 125 mls/hr Levofloxacin/Dextrose (Levaquin 500mg) 500 mg in 100 mls @ 100 mls/hr IVPB DAILY EMILEE PRN Reason: Protocol Last Admin: 06/24/17 08:56 Dose: 100 mls/hr Vancomycin HCl 1 gm/ Sodium (Chloride) 250 mls @ 166.667 mls/hr IVPB DAILY EMILEE PRN Reason: Protocol Last Admin: 06/24/17 10:04 Dose: 166.667 mls/hr Labetalol HCl (Trandate) 200 mg PO Q8 EMILEE Lorazepam (Ativan) 2 mg IVP Q6 PRN PRN Reason: Seizure activity Potassium Chloride (Potassium Chloride Oral Soln) 40 meq PO ONCE ONE Stop: 06/24/17 16:06 Results - Vital Signs Recent Vital Signs: Last Vital Signs Temp 98.1 F 06/24/17 07:30 Pulse 105 H 06/24/17 15:13 Resp 20 06/24/17 15:13 BP 145/89 06/24/17 15:13 Pulse Ox 98 06/24/17 15:13 - Labs Result Diagrams: 06/24/17 04:50 06/24/17 04:50 Labs: Laboratory Results - last 24 hr 06/23/17 06/23/17 06/23/17 17:32 20:58 21:31 WBC RBC Hgb Hct MCV MCH MCHC RDW Plt Count MPV Neut % (Auto) Lymph % (Auto) [place] % (Auto) Eos % (Auto) Baso % (Auto) Neut # (Auto) Lymph # (Auto) [place] # (Auto) Eos # (Auto) Baso # (Auto) Sodium Potassium Chloride Carbon Dioxide Anion Gap BUN Creatinine Est GFR ( Amer) Est GFR (Non-Af Amer) Random Glucose Lactic Acid 1.2 Calcium Total Bilirubin AST ALT Alkaline Phosphatase Total Creatine Kinase 214 H Total Protein Albumin Globulin Albumin/Globulin Ratio Urine Color Light yellow Urine Clarity Clear Urine pH 6.0 Ur Specific [place] 1.010 Urine Protein 30 Urine Glucose (UA) Negative Urine Ketones Ngative Urine Blood Trace Urine Nitrate Negative Urine Bilirubin Negative Urine Urobilinogen 0.2 Ur Leukocyte Esterase Negative Urine RBC (Auto) 8 H Urine Microscopic WBC < 1 Ur Squamous Epith Cells 1 Urine Bacteria Few H 06/24/17 06/24/17 06/24/17 04:50 04:50 04:50 WBC 7.4 RBC 5.02 Hgb 12.7 Hct 39.5 MCV 78.7 L D MCH 25.3 L MCHC 32.2 L RDW 14.1 Plt Count 211 MPV 9.5 Neut % (Auto) 72.7 Lymph % (Auto) 19.4 L [place] % (Auto) 6.7 Eos % (Auto) 0.7 Baso % (Auto) 0.5 Neut # (Auto) 5.4 Lymph # (Auto) 1.4 [place] # (Auto) 0.5 Eos # (Auto) 0.1 Baso # (Auto) 0.0 Sodium 139 Potassium 3.3 L Chloride 100 Carbon Dioxide 29 Anion Gap 13 BUN 9 Creatinine 0.9 Est GFR ( Amer) > 60 Est GFR (Non-Af Amer) > 60 Random Glucose 120 H Lactic Acid 1.1 Calcium 7.3 L Total Bilirubin 0.5 AST 32 ALT 60 H Alkaline Phosphatase 106 Total Creatine Kinase 275 H Total Protein 6.5 Albumin 3.2 L D Globulin 3.4 Albumin/Globulin Ratio 0.9 L Urine Color Urine Clarity Urine pH Ur Specific [place] Urine Protein Urine Glucose (UA) Urine Ketones Urine Blood Urine Nitrate Urine Bilirubin Urine Urobilinogen Ur Leukocyte Esterase Urine RBC (Auto) Urine Microscopic WBC Ur Squamous Epith Cells Urine Bacteria Assessment & Plan (1) Seizure Status: Acute (2) Eclampsia Status: Acute (3) Hypertension affecting Status: Acute - Assessment and Plan (Free Text) Plan: BP REMAINS ELEVATED. INCREASE LABETALOL TO Q8 DOSING. MONITOR LYTES. MAG GIVEN. PT HAS NOT HAD ANY SZ TODAY.
[2017-06-24] MEDS ORDERED: Potassium Chloride 20 mEq ER Tab PO ONE (21:54)
[2017-06-25] MEDS: levoFLOXacin 500 mg in D5W 500 MG/100 ML BAG IVPB SCH (09:36)
[2017-06-25 11:40] LABS: ALBUMIN 3.3 g/dL (3.5-5.0); ALT/SGPT 52 U/L (9-52); AST/SGOT 22 U/L (14-36); BLOOD UREA NITROGEN 14 mg/dl (7-17); CALCIUM 8.3 mg/dL (8.4-10.2); GFR AFRICAN-AMERICAN > 60; GFR NON-AFRICAN AMERICAN > 60
[2017-06-25 11:44] LABS: HEMOGLOBIN 12.8 g/dL (12.0-16.0); MEAN CORPUSCULAR HEMOGLOBIN 25.5 pg (27.0-31.0); MEAN CORPUSCULAR HGB CONC 32.3 g/dL (33.0-37.0); RBC 5.01 Mil/uL (3.80-5.20); RED CELL DISTRIBUTION WIDTH 14.2 % (11.5-14.5); WHITE BLOOD COUNT 6.8 K/uL (4.8-10.8)
--- NOTE | 2017-06-25 13:45 | CP.PCM.HP ---
History of Present Illness - History of Present Illness History of Present Illness: This is a 36 y/o female , 1 week was admitted for uncontrolled BP and seizure noted at the ER . She apparently drove herself to ER and had two episodes of seizure while at the ER. She was given IV ativan and mag sulfate drip and labetalol. She denies having any HTN during period . Past Patient History - Tetanus Immunizations Tetanus Immunization: Unknown - Past Social History Smoking Status: Never Smoked - CARDIAC Hx Hypertension: No - PSYCHIATRIC Hx Depression: No - SURGICAL HISTORY Hx Surgeries: No Other/Comment: pt is g8,p4, ab 4. - ANESTHESIA Hx Anesthesia: No Meds Allergies/Adverse Reactions: Allergies Allergy/AdvReac Type Severity Reaction Status Date / Time Penicillins Allergy RASH Verified 01/09/17 13:28 Results - Vital Signs Recent Vital Signs: Last Vital Signs Temp 98.1 F 06/24/17 07:30 Pulse 74 06/25/17 13:39 Resp 18 06/25/17 13:39 BP 149/96 H 06/25/17 13:39 Pulse Ox 97 06/25/17 13:39 - Labs Result Diagrams: 06/25/17 11:00 06/25/17 11:00 Labs: Laboratory Results - last 24 hr 06/25/17 06/25/17 11:00 11:00 WBC 6.8 RBC 5.01 Hgb 12.8 Hct 39.6 MCV 79.0 L MCH 25.5 L MCHC 32.3 L RDW 14.2 Plt Count 229 Sodium 141 Potassium 3.7 Chloride 106 Carbon Dioxide 25 Anion Gap 14 BUN 14 Creatinine 1.0 Est GFR ( Amer) > 60 Est GFR (Non-Af Amer) > 60 Random Glucose 101 Calcium 8.3 L Total Bilirubin 0.6 AST 22 ALT 52 Alkaline Phosphatase 92 Total Protein 6.7 Albumin 3.3 L Globulin 3.4 Albumin/Globulin Ratio 1.0
--- NOTE | 2017-06-25 13:46 | CP.PCM.PN ---
Subjective - Date & Time of Evaluation Date of Evaluation: 06/25/17 Time of Evaluation: 13:45 - Subjective Subjective: Patient is much more stable No headaches Still with slightly elevated BP Currently on Labetalol 200 q 8 Labs showed a stable cbc and cmp CO2 is 25 Objective - Vital Signs/Intake and Output Vital Signs (last 24 hours): Temp Pulse Resp BP Pulse Ox 98.1 F 74 18 149/96 H 97 06/24/17 07:30 06/25/17 13:39 06/25/17 13:39 06/25/17 13:39 06/25/17 13:39 - Medications Medications: Current Medications Acetaminophen (Tylenol 325mg/10.15ml Ud) 325 mg PO Q4 PRN PRN Reason: Headache Last Admin: 06/23/17 22:31 Dose: 325 mg Hydralazine HCl (Apresoline) 5 mg IV Q4H PRN PRN Reason: BLOOD PRESSURE >160/100 Last Admin: 06/24/17 23:48 Dose: 5 mg Hydralazine HCl (Apresoline) 10 mg PO TID EMILEE Levofloxacin/Dextrose (Levaquin 500mg) 500 mg in 100 mls @ 100 mls/hr IVPB DAILY EMILEE PRN Reason: Protocol Last Admin: 06/25/17 09:36 Dose: 100 mls/hr Vancomycin HCl 1 gm/ Sodium (Chloride) 250 mls @ 166.667 mls/hr IVPB DAILY EMILEE PRN Reason: Protocol Last Admin: 06/25/17 09:36 Dose: 166.667 mls/hr Labetalol HCl (Trandate) 200 mg PO Q8 EMILEE Last Admin: 06/25/17 09:37 Dose: 200 mg Lorazepam (Ativan) 2 mg IVP Q6 PRN PRN Reason: Seizure activity - Labs Labs: 06/25/17 11:00 06/25/17 11:00 PT 10.6 Seconds (9.8-13.1) 06/23/17 14:40 INR 1.0 (0.9-1.2) 06/23/17 14:40 APTT 26.5 Seconds (25.6-37.1) 06/23/17 14:40
--- NOTE | 2017-06-25 17:47 | CP.PCM.PN ---
Subjective - Date & Time of Evaluation Date of Evaluation: 06/25/17 Time of Evaluation: 17:47 - Subjective Subjective: pt c/o blurry vision which is intermittent. bp remains elevated. she is NOT breast feeding. BUCIO resolved. NO sz activity. Objective - Vital Signs/Intake and Output Vital Signs (last 24 hours): Temp Pulse Resp BP Pulse Ox 98 F 63 20 163/82 H 96 06/25/17 17:09 06/25/17 17:09 06/25/17 17:09 06/25/17 17:09 06/25/17 17:09 - Medications Medications: Current Medications Acetaminophen (Tylenol 325mg/10.15ml Ud) 325 mg PO Q4 PRN PRN Reason: Headache Last Admin: 06/23/17 22:31 Dose: 325 mg Hydralazine HCl (Apresoline) 10 mg PO TID EMILEE Last Admin: 06/25/17 16:18 Dose: 10 mg Levofloxacin/Dextrose (Levaquin 500mg) 500 mg in 100 mls @ 100 mls/hr IVPB DAILY EMILEE PRN Reason: Protocol Last Admin: 06/25/17 09:36 Dose: 100 mls/hr Vancomycin HCl 1 gm/ Sodium (Chloride) 250 mls @ 166.667 mls/hr IVPB DAILY EMILEE PRN Reason: Protocol Last Admin: 06/25/17 09:36 Dose: 166.667 mls/hr Labetalol HCl (Trandate) 200 mg PO Q8 EMILEE Last Admin: 06/25/17 17:07 Dose: 200 mg Lorazepam (Ativan) 2 mg IVP Q6 PRN PRN Reason: Seizure activity - Labs Labs: 06/25/17 11:00 06/25/17 11:00 PT 10.6 Seconds (9.8-13.1) 06/23/17 14:40 INR 1.0 (0.9-1.2) 06/23/17 14:40 APTT 26.5 Seconds (25.6-37.1) 06/23/17 14:40 - Constitutional Appears: Well - Head Exam Head Exam: ATRAUMATIC, NORMAL INSPECTION, NORMOCEPHALIC - Eye Exam Eye Exam: EOMI, Normal appearance, PERRL. absent: Conjunctival injection, Nystagmus, Periorbital swelling, Periorbital tenderness, Scleral icterus Pupil Exam: NORMAL ACCOMODATION, PERRL - ENT Exam ENT Exam: Mucous Membranes Moist, Normal Exam. absent: Mucous Membranes Dry, Normal External Ear Exam, Normal Oropharynx, TM's Normal Bilaterally - Neck Exam Neck Exam: Full ROM, Normal Inspection. absent: Lymphadenopathy, Meningismus, Tenderness, Thyromegaly - Respiratory Exam Respiratory Exam: Clear to Ausculation Bilateral, NORMAL BREATHING PATTERN. absent: Accessory Muscle Use, Chest Wall Tenderness, Decreased Breath Sounds, Prolonged Expiratory Phase, Rales, Rhonchi, Wheezes, Respiratory Distress, Stridor - Cardiovascular Exam Cardiovascular Exam: REGULAR RHYTHM, +S1, +S2. absent: Bradycardia, Tachycardia , Clicks, Diastolic murmur, Gallop, Irregular Rhythm, JVD, RRR, Rubs, +S4, Murmur - GI/Abdominal Exam GI & Abdominal Exam: Soft, Normal Bowel Sounds - Rectal Exam Rectal Exam: Deferred - Extremities Exam Extremities Exam: Full ROM, Normal Capillary Refill, Pedal Edema. absent: Calf Tenderness, Joint Swelling, Normal Inspection, Tenderness - Back Exam Back Exam: NORMAL INSPECTION. absent: CVA tenderness (L), CVA tenderness (R), Full ROM, muscle spasm, paraspinal tenderness, rash noted, tenderness, vertebral tenderness - Neurological Exam Neurological Exam: Alert, Awake, CN II-XII Intact, Normal Gait, Oriented x3. absent: Abnormal Gait, Altered, Motor Sensory Deficit, Reflexes Normal - Psychiatric Exam Psychiatric exam: Normal Affect, Normal Mood. absent: Agitated, Anxious, Depressed, Flat Affect, Homicidal Ideation, Manic, Suicidal Ideation - Skin Skin Exam: Dry, Intact, Normal Color, Warm. absent: Abrasion, Cyanosis, Diaphoretic, Erythema, Mottled, Pallor, Pallor, Petechiae, Rash, Urticaria, Vesicles Assessment and Plan (1) Seizure Status: Acute (2) Eclampsia Status: Acute (3) Hypertension affecting Status: Acute - Assessment and Plan (Free Text) Plan: will add hydralazine 25 po q6 hours. cont labetalol. since she is not breast feeding treatment options are expanded. However prior to using alternate bp meds pt would need to understand the risk if she breast feeds.
[2017-06-26 06:51] LABS: BLOOD UREA NITROGEN 18 mg/dl (7-17); CALCIUM 8.8 mg/dL (8.4-10.2); GFR AFRICAN-AMERICAN > 60; GFR NON-AFRICAN AMERICAN 56; MAGNESIUM 1.9 MG/DL (1.6-2.3)
[2017-06-26] MEDS: levoFLOXacin 500 mg in D5W 500 MG/100 ML BAG IVPB SCH (08:48)
--- NOTE | 2017-06-26 11:22 | CP.PCM.PN ---
Subjective - Date & Time of Evaluation Date of Evaluation: 06/26/17 Time of Evaluation: 11:20 - Subjective Subjective: Ms. Aparicio was seen and examined at the bedside. She is alert, oriented in all spheres. She denies any headache, blurred vision, nausea, vomiting. She claims of experiencing headache when she first came to the hospital, but improved. She is able to follow simple commands. There was no untoward events overnight. Objective - Vital Signs/Intake and Output Vital Signs (last 24 hours): Temp Pulse Resp BP Pulse Ox 97.7 F 99 H 17 127/79 97 06/26/17 09:52 06/26/17 09:52 06/26/17 09:52 06/26/17 09:52 06/26/17 09:52 - Medications Medications: Current Medications Acetaminophen (Tylenol 325mg/10.15ml Ud) 325 mg PO Q4 PRN PRN Reason: Headache Last Admin: 06/23/17 22:31 Dose: 325 mg Hydralazine HCl (Apresoline) 25 mg PO Q6 [facility] Last Admin: 06/26/17 09:00 Dose: 25 mg Levofloxacin/Dextrose (Levaquin 500mg) 500 mg in 100 mls @ 100 mls/hr IVPB DAILY EMILEE PRN Reason: Protocol Last Admin: 06/26/17 08:48 Dose: 100 mls/hr Vancomycin HCl 1 gm/ Sodium (Chloride) 250 mls @ 166.667 mls/hr IVPB DAILY EMILEE PRN Reason: Protocol Last Admin: 06/26/17 08:49 Dose: 166.667 mls/hr Labetalol HCl (Trandate) 200 mg PO Q8 [facility] Last Admin: 06/26/17 08:49 Dose: 200 mg Lorazepam (Ativan) 2 mg IVP Q6 PRN PRN Reason: Seizure activity Magnesium Oxide (Mag-Ox) 400 mg PO BID [facility] - Labs Labs: 06/25/17 11:00 06/26/17 06:00 PT 10.6 Seconds (9.8-13.1) 06/23/17 14:40 INR 1.0 (0.9-1.2) 06/23/17 14:40 APTT 26.5 Seconds (25.6-37.1) 06/23/17 14:40 - Constitutional Appears: No Acute Distress - Head Exam Head Exam: NORMAL INSPECTION - Neurological Exam Neurological Exam: Alert, Awake, Oriented x3 Neuro motor strength exam: Left Upper Extremity: 5, Right Upper Extremity: 5, Left Lower Extremity: 5, Right Lower Extremity: 5 Additional comments: She is alert, oriented, follow simple commands. Sensation remains intact. Assessment and Plan (1) Headache Assessment & Plan: Case discussed with Dr. Cabrera, continue all current medical regimen. Recommend Magnesium 400 mg PO BID. and recommend to see a neurologist if headache persist. Status: Acute
--- NOTE | 2017-06-26 11:28 | PQF GENQUE ---
This form is a permanent part of the medical record 06/26/17 Dr. Post, Pt has documented R/O Aspiration Pneumonia by the [employer] on 06/23/17 noted as rule out or similar terminology such as suspected, probable, etc. Please clarify status of this condition: [] Patient has condition [] Condition was ruled out [] Patient had condition which is now resolved [] Other (please specify) [] Clinically unable to determine [] Unknown Post 7 days ago presents with seizures and HTN. [facility] documents CXR : L hemidiaphragm obscured, possible infiltrate behind left heart, RLL haziness ( my interp) R/O Aspiration Pneumonia and started on Levaquin and Vancomycin. Afebrile. WBC 12.1 . Official read CXR: No active disease. Clarification of your documentation is requested to better reflect the severity of illness and intensity of treatment of your patient. Indicators present [] Specify: [] [] Specify: [] [] Specify: [] [] Specify: [] Location in the medical record that reflects the above clinical findings: [] Treatment Provided: [] PHYSICIAN'S RESPONSE Based on your medical judgment of the clinical indicators outlined above please clarify the following: [] Practitioner response [] If unable to determine, please check the box, sign and date. Present On Admission (POA) Indicator: [] Present at the time of admission [] Not present at the time of admission [] Clinically Undetermined In responding to this query, please exercise your independent professional judgment. The fact that a question is asked does not imply that any particular answer is desired or expected. Thank you for your clarification on this documentation. If you have any questions please call:ext [phone] * Thank you, Wendi Higgins RN CDMP [facility]
[2017-06-26] MEDS: Magnesium Oxide 400 mg Tab UD PO SCH ×2 (11:31→16:02)
--- NOTE | 2017-06-26 13:57 | CP.PCM.PCO ---
Assessment/Plan - Assessment/Plan Assessment (Free Text): Pt seen and cleared for d/c home by Dr. Post. Pt denies headache, cp, sob or dizziness. BP improved after medications, per Dr. Cunha, d/c on same medications. Per neurology, d/c home on mag. sulfate 400mg bid. All Rx given. Pt stable. Pt to f/u with PMD and neuro in 1 week. - Consults Consult Orders: Consultations 06/25/17 15:26 Consult Routine Comment: Physician Instructions: Reason For Exam: post 7 days
--- NOTE | 2017-06-26 14:11 | CP.PCM.PCO ---
Physician Communication Note - Physician Communication Note Physician Communication Note: Per Dr. Post, observation status on 06/24 in error. Pt admitted as inpat.
[2017-06-26] MEDS: Acetaminophen 325 MG/10.15 ML PO PRN ×2 (17:07→21:16)
[2017-06-27] MEDS: Acetaminophen 325 MG/10.15 ML PO PRN (06:31)
--- NOTE | 2017-06-27 08:17 | CP.PCM.PN ---
Subjective - Date & Time of Evaluation Date of Evaluation: 06/27/17 Time of Evaluation: 08:12 - Subjective Subjective: no complaints today no headacheor any pain Objective - Vital Signs/Intake and Output Vital Signs (last 24 hours): Temp Pulse Resp BP Pulse Ox 98.4 F 83 19 134/82 98 06/27/17 00:00 06/27/17 04:33 06/27/17 00:00 06/27/17 04:33 06/27/17 00:00 - Medications Medications: Current Medications Acetaminophen (Tylenol 325mg/10.15ml Ud) 325 mg PO Q4 PRN PRN Reason: Headache Last Admin: 06/27/17 06:31 Dose: 325 mg Cyclobenzaprine HCl (Flexeril) 10 mg PO HS PRN PRN Reason: Muscle spasm Last Admin: 06/26/17 20:11 Dose: 10 mg Hydralazine HCl (Apresoline) 50 mg PO Q6 [facility] Last Admin: 06/27/17 04:33 Dose: 50 mg Levofloxacin/Dextrose (Levaquin 500mg) 500 mg in 100 mls @ 100 mls/hr IVPB DAILY [facility] PRN Reason: Protocol Last Admin: 06/26/17 08:48 Dose: 100 mls/hr Vancomycin HCl 1 gm/ Sodium (Chloride) 250 mls @ 166.667 mls/hr IVPB DAILY [facility] PRN Reason: Protocol Last Admin: 06/26/17 08:49 Dose: 166.667 mls/hr Labetalol HCl (Trandate) 200 mg PO Q8 [facility] Last Admin: 06/27/17 01:13 Dose: 200 mg Lorazepam (Ativan) 2 mg IVP Q6 PRN PRN Reason: Seizure activity Magnesium Oxide (Mag-Ox) 400 mg PO BID [facility] Last Admin: 06/26/17 16:02 Dose: 400 mg - Labs Labs: 06/25/17 11:00 06/26/17 06:00 PT 10.6 Seconds (9.8-13.1) 06/23/17 14:40 INR 1.0 (0.9-1.2) 06/23/17 14:40 APTT 26.5 Seconds (25.6-37.1) 06/23/17 14:40 - Eye Exam Additional comments: bettina silva this am after medication adjustment Assessment and Plan - Assessment and Plan (Free Text) Assessment: post eclampsia on medication to control here bp
[2017-06-27] MEDS: levoFLOXacin 500 mg in D5W 500 MG/100 ML BAG IVPB SCH (08:27)
[2017-06-27] MEDS: Magnesium Oxide 400 mg Tab UD PO SCH ×2 (08:28→16:06)
--- NOTE | 2017-06-27 15:30 | CP.PCM.PCO ---
Assessment/Plan - Assessment/Plan Assessment (Free Text): Pt in bed stable, BP is better controlled after increase in BP meds. Seen and cleared for d/c home by Dr. Post and Dr. Pereira. Rx sent to pharmacy. Pt verbalized understanding to d/c instructions.
[2017-06-27 16:07] VITALS: BP 142/92; PULSE 55; RESP 18; TEMP 98.9; O2SAT 98
--- NOTE | 2017-06-27 17:17 | CP.PCM.DIS ---
Provider - Provider Date of Admission: 06/25/17 11:18 Attending physician: Bj Post MD Time Spent in preparation of Discharge (in minutes): 30 Diagnosis - Discharge Diagnosis (1) Eclampsia Status: Acute Hospital Course - Lab Results Lab Results: Most Recent Lab Values WBC 6.8 K/uL (4.8-10.8) 06/25/17 11:00 RBC 5.01 Mil/uL (3.80-5.20) 06/25/17 11:00 Hgb 12.8 g/dL (12.0-16.0) 06/25/17 11:00 Hct 39.6 % (34.0-47.0) 06/25/17 11:00 MCV 79.0 fl (81.0-99.0) L 06/25/17 11:00 MCH 25.5 pg (27.0-31.0) L 06/25/17 11:00 MCHC 32.3 g/dL (33.0-37.0) L 06/25/17 11:00 RDW 14.2 % (11.5-14.5) 06/25/17 11:00 Plt Count 229 K/uL (130-400) 06/25/17 11:00 MPV 9.5 fl (7.2-11.7) 06/24/17 04:50 Neut % (Auto) 72.7 % (50.0-75.0) 06/24/17 04:50 Lymph % (Auto) 19.4 % (20.0-40.0) L 06/24/17 04:50 [place] % (Auto) 6.7 % (0.0-10.0) 06/24/17 04:50 Eos % (Auto) 0.7 % (0.0-4.0) 06/24/17 04:50 Baso % (Auto) 0.5 % (0.0-2.0) 06/24/17 04:50 Neut # (Auto) 5.4 K/uL (1.8-7.0) 06/24/17 04:50 Lymph # (Auto) 1.4 K/uL (1.0-4.3) 06/24/17 04:50 [place] # (Auto) 0.5 K/uL (0.0-0.8) 06/24/17 04:50 Eos # (Auto) 0.1 K/uL (0.0-0.7) 06/24/17 04:50 Baso # (Auto) 0.0 K/uL (0.0-0.2) 06/24/17 04:50 PT 10.6 Seconds (9.8-13.1) 06/23/17 14:40 INR 1.0 (0.9-1.2) 06/23/17 14:40 APTT 26.5 Seconds (25.6-37.1) 06/23/17 14:40 Sodium 141 mmol/l (132-148) 06/26/17 06:00 Potassium 4.9 MMOL/L (3.6-5.0) 06/26/17 06:00 Chloride 106 mmol/L (98-107) 06/26/17 06:00 Carbon Dioxide 25 mmol/L (22-30) 06/26/17 06:00 Anion Gap 15 (10-20) 06/26/17 06:00 BUN 18 mg/dl (7-17) H 06/26/17 06:00 Creatinine 1.1 mg/dl (0.7-1.2) 06/26/17 06:00 Est GFR ( Amer) > 60 06/26/17 06:00 Est GFR (Non-Af Amer) 56 06/26/17 06:00 POC Glucose (mg/dL) 88 mg/dL (65-110) 06/23/17 14:06 Random Glucose 88 mg/dL (65-105) 06/26/17 06:00 Lactic Acid 1.1 MMOL/L (0.7-2.1) 06/24/17 04:50 Calcium 8.8 mg/dL (8.4-10.2) 06/26/17 06:00 Phosphorus 5.2 mg/dl (2.5-4.5) H 06/23/17 14:40 Magnesium 1.9 MG/DL (1.6-2.3) 06/26/17 06:00 Total Bilirubin 0.6 mg/dl (0.2-1.3) 06/25/17 11:00 AST 22 U/L (14-36) 06/25/17 11:00 ALT 52 U/L (9-52) 06/25/17 11:00 Alkaline Phosphatase 92 U/L (38-126) 06/25/17 11:00 Total Creatine Kinase 275 U/L (30-135) H 06/24/17 04:50 Total Protein 6.7 G/DL (6.3-8.2) 06/25/17 11:00 Albumin 3.3 g/dL (3.5-5.0) L 06/25/17 11:00 Globulin 3.4 gm/dL (2.2-3.9) 06/25/17 11:00 Albumin/Globulin Ratio 1.0 (1.0-2.1) 06/25/17 11:00 Urine Color Light yellow (YELLOW) 06/23/17 17:32 Urine Clarity Clear (Clear) 06/23/17 17:32 Urine pH 6.0 (5.0-8.0) 06/23/17 17:32 Ur Specific [place] 1.010 (1.003-1.030) 06/23/17 17:32 Urine Protein 30 mg/dL (NEGATIVE) 06/23/17 17:32 Urine Glucose (UA) Negative mg/dL (Normal) 06/23/17 17:32 Urine Ketones Ngative mg/dL (NEGATIVE) 06/23/17 17:32 Urine Blood Trace (NEGATIVE) 06/23/17 17:32 Urine Nitrate Negative (NEGATIVE) 06/23/17 17:32 Urine Bilirubin Negative (NEGATIVE) 06/23/17 17:32 Urine Urobilinogen 0.2 mg/dL (0.2-1.0) 06/23/17 17:32 Ur Leukocyte Esterase Negative Carlos/uL (Negative) 06/23/17 17:32 Urine RBC (Auto) 8 /hpf (0-3) H 06/23/17 17:32 Urine Microscopic WBC < 1 /hpf (0-5) 06/23/17 17:32 Ur Squamous Epith Cells 1 /hpf (0-5) 06/23/17 17:32 Urine Bacteria Few (<OCC) H 06/23/17 17:32 - Hospital Course Hospital Course: Patient was admitted for Eclampsia s/p vaginal delivery. Blood pressure is now better controlled with BP meds. Denies any headaches, seizures, nausea or vomiting Discharge Exam - Head Exam Head Exam: NORMAL INSPECTION - Eye Exam Eye Exam: Normal appearance - Respiratory Exam Respiratory Exam: Clear to PA & Lateral, NORMAL BREATHING PATTERN. absent: Rales, Rhonchi, Wheezes - Cardiovascular Exam Cardiovascular Exam: REGULAR RHYTHM, +S1, +S2 - GI/Abdominal Exam GI & Abdominal Exam: Normal Bowel Sounds. absent: Tenderness - Skin Skin Exam: Normal Color, Warm Discharge Plan - Discharge Medications Prescriptions: amLODIPine [Norvasc] 5 mg PO DAILY #30 tab Blood Pressure Test Kit [Blood Pressure Monitor] 1 each MC TID #1 kit hydrALAZINE [Apresoline] 50 mg PO Q6 #30 tab Labetalol [Trandate] 200 mg PO Q8 #30 tab Magnesium Oxide [Mag-Ox] 400 mg PO BID #60 tab - Follow Up Plan Condition: GOOD Disposition: HOME/ ROUTINE Instructions: New-Onset Seizure in Adults (DC), Preeclampsia and Eclampsia After Delivery (GEN) Additional Instructions: follow up with Dr. Post and Dr. Ortega in 1 week follow up with neurology in 1 week Referrals: Bj oPst MD [Staff Provider] - Rigo Lo MD [Medical Doctor] - Pauline العراقي MD [Staff Provider] -
--- NOTE | 2017-06-27 17:24 | CP.PCM.PN ---
Subjective - Date & Time of Evaluation Date of Evaluation: 06/27/17 Time of Evaluation: 17:24 Objective - Vital Signs/Intake and Output Vital Signs (last 24 hours): Temp Pulse Resp BP Pulse Ox 98.9 F 55 L 18 142/92 H 98 06/27/17 16:07 06/27/17 16:07 06/27/17 16:07 06/27/17 16:07 06/27/17 16:07 - Medications Medications: Current Medications Acetaminophen (Tylenol 325mg/10.15ml Ud) 325 mg PO Q4 PRN PRN Reason: Headache Last Admin: 06/27/17 06:31 Dose: 325 mg Cyclobenzaprine HCl (Flexeril) 10 mg PO HS PRN PRN Reason: Muscle spasm Last Admin: 06/26/17 20:11 Dose: 10 mg Hydralazine HCl (Apresoline) 50 mg PO Q6 [facility] Last Admin: 06/27/17 16:06 Dose: 50 mg Levofloxacin/Dextrose (Levaquin 500mg) 500 mg in 100 mls @ 100 mls/hr IVPB DAILY [facility] PRN Reason: Protocol Last Admin: 06/27/17 08:27 Dose: 100 mls/hr Vancomycin HCl 1 gm/ Sodium (Chloride) 250 mls @ 166.667 mls/hr IVPB DAILY [facility] PRN Reason: Protocol Last Admin: 06/27/17 09:58 Dose: 166.667 mls/hr Labetalol HCl (Trandate) 200 mg PO Q8 [facility] Last Admin: 06/27/17 08:28 Dose: 200 mg Lorazepam (Ativan) 2 mg IVP Q6 PRN PRN Reason: Seizure activity Magnesium Oxide (Mag-Ox) 400 mg PO BID [facility] Last Admin: 06/27/17 16:06 Dose: 400 mg - Labs Labs: 06/25/17 11:00 06/26/17 06:00 PT 10.6 Seconds (9.8-13.1) 06/23/17 14:40 INR 1.0 (0.9-1.2) 06/23/17 14:40 APTT 26.5 Seconds (25.6-37.1) 06/23/17 14:40 Assessment and Plan (1) Seizure Status: Acute (2) Eclampsia Status: Acute (3) Hypertension affecting Status: Acute - Assessment and Plan (Free Text) Plan: BP STABLE CONTINUE CURRENT MEDS. PT SHOULD F/U OUTPT IN 2 WEEKS.
== END 2017-06-27 18:06 | disposition home or self-care (01) | DRG 776 ==
LOC: H.ER 13:14 → OBSVTOIN 16:20 → INTOOBSV 16:20 → H.ERHOLD 16:20 → OBSVTOIN 06-25 11:18 → H.MEDSURG1 06-25 14:51
PROVIDERS: ADMIT Family Medicine; ATTEND Family Medicine
DX: O15.2 Eclampsia complicating the puerperium (principal); E87.2 Acidosis; Z88.0 Allergy status to penicillin